=== PATIENT | female | born 1985 | race Hispanic/Latino ===

== ENCOUNTER 2018-04-23 09:47 | Outpatient (CLI) | payer BC | END 2018-04-23 09:48 | disposition home or self-care (01) | LOC: C.PAT 09:47 | DX: K82.4 Cholesterolosis of gallbladder (principal) ==

== ENCOUNTER → 2018-04-28 | Day surgery (SDC) | payer BC ==
[2018-04-23 10:55] VITALS: BMI 42.7
[~2018-04-28] MED LIST: Bupivacaine 0.25% 20 ML INJ IJ ONE; Bupivacaine Liposomal Inj 20 ml INFIL ONE; HYDROmorphone 0.5 mg/0.5 ml ISec IVP STA; Lactated Ringer's 1,000 ML IV ONE; Lidocaine/Epinephrine 1% 1:100000 10 ML IJ ONE; Midazolam 2 MG/2 ML VIAL ONE; Propofol 10 mg/ml Inj (20 ML) ONE; Sodium Chloride 0.9% 40 ML IV ONE; Vancomycin 1 gm/D5W 200 ml 1 GM/200 ML BAG IVPB ONE
[2018-04-28] MEDS: HYDROmorphone 0.5 mg/0.5 ml ISec IVP PRN ×4 (12:14→12:50)
--- NOTE | 2018-04-28 12:25 | PCM.SURG1 ---
Surgeon's Initial Post Op Note - Surgeon's Notes Surgeon: MD Melissa Seat Nailer: Kanchan Harman Pre-Operative Diagnosis: Cholecystitis Operative Findings: inflammed gallbladder Post-Operative Diagnosis: Cholecystitis Operation Performed: Robotic assisted laparoscopic cholecystectomy Specimen/Specimens Removed: gallbladder Estimated Blood Loss: EBL {In ML}: 5 Date of Surgery/Procedure: 04/28/18 Time of Surgery/Procedure: 11:00
[2018-04-28 15:13] VITALS: BP 127/81; PULSE 80; RESP 18; TEMP 97; O2SAT 100
--- NOTE | 2018-04-29 01:06 | OP ---
PROCEDURE DATE: 04/28/2018 PREOPERATIVE DIAGNOSES: 1. Gallbladder polyp. 2. Chronic cholecystitis. POSTOPERATIVE DIAGNOSES: 1. Gallbladder polyp. 2. Chronic cholecystitis. PROCEDURE DONE: 1. Robotic cholecystectomy. 2. Laparoscopic bilateral TAP block placement. PROCEDURE DONE BY: Goyo Torres MD SUMMER COUNSELOR: ANDREA Dalton ANESTHESIA: General endotracheal tube anesthesia. ESTIMATED BLOOD LOSS: Around 10 mL. DRAINS: None. PATHOLOGY: Gallbladder was sent for the pathology. COMPLICATIONS: None. INTRAOPERATIVE FINDINGS: The patient had changes of chronic cholecystitis and cholelithiasis. DESCRIPTION OF PROCEDURE: On intraoperative steps, this is a 33-year-old female who was diagnosed with a gallbladder polyp and the patient also had a previous history of gallbladder stone with chronic cholecystitis, and the patient was consented for robotic cholecystectomy, possible open, brought to the OR, placed supine on operating table. After induction of the anesthesia, the abdomen was prepped and draped in usual sterile fashion. A supraumbilical transverse incision was made using open technique. Peritoneal cavity was entered. Pneumo was created. Another 3.8-mm port was placed in upper abdomen. Robot was brought in. Camera arm as well as arm 1 and arm 2 was docked and gallbladder was retracted cranially. Calot's triangle dissection was done. Cystic duct and cystic artery were identified and clipped at three places and cut in between two clips nearby gallbladder. The gallbladder was dissected free from the gallbladder fossa, taken in EndoCatch bag, taken out through the umbilical port site and sent off the table for the pathology. There was proper hemostasis in each and every part of the procedure. The top-down approach was done. Critical view of the safety was also done, and intraoperative Firefly was used before clipping the cystic duct and cystic artery and after proper hemostasis, the robot was undocked. All the instrument was taken out. The specimen was sent off the table for the pathology and laparoscopic bilateral TAP block was given; 30:30 mL of Marcaine was injected into the transverse abdominis muscle plane area and after proper TAP block, all the ports were taken out under vision. Pneumo was deflated. Umbilical port site was closed in two-layer, the fascia with 0 Vicryl interrupted sutures, skin with 4-0 Monocryl and dry sterile dressing was applied. The patient tolerated procedure well. Count of instrument was correct. There was no apparent complication. Goyo Torres MD
== END | disposition home or self-care (01) ==
LOC: C.SDS 07:49
PROVIDERS: ATTEND Surgery Surgical Critical Care
DX: K80.10 Calculus of gallbladder with chronic cholecystitis without obstruction (principal)
CPT/HCPCS: 47562; 88304; J0131; J1170; J2250; J2405; J2704; J2765; J3010; J3370; J7030; J7120

== ENCOUNTER 2018-05-01 10:45 | Emergency (ER) | payer BC ==
[2018-05-01 10:45] VITALS: BMI 42.7
--- NOTE | 2018-05-01 12:06 | C.PDOC ---
History Of Present Illness 33 year old female (s/p cholecystectomy 4 days ago) presents to the emergency department with complaints of asymmetric pupils which she noted this morning. Patient states that both of her pupils are dilated, right greater than left. Patient reports that she is currently taking Ultram, last taken at 10PM last night, and she complains of a headache which began when she started taking Ultram. Time Seen by Provider: 05/01/18 11:36 Chief Complaint (Nursing): Eye Problem History Per: Patient History/Exam Limitations: no limitations Onset/Duration Of Symptoms: Hrs Current Symptoms Are (Timing): Still Present Quality: Aching Associated Symptoms: Other (asymmetric pupils) Past Medical History Reviewed: Historical Data, Nursing Documentation, Vital Signs Vital Signs: Last Vital Signs Temp 98.6 F 05/01/18 11:01 Pulse 90 05/01/18 11:01 Resp 18 05/01/18 11:01 BP 127/98 H 05/01/18 11:01 Pulse Ox 97 05/01/18 11:01 - Medical History PMH: Asthma, Fractures (HX:FX.ARM-RIGHT AND LEFT-CASTED ONLY), Gastritis Denies: Chronic Kidney Disease Surgical History: Cholecystectomy (04/28/2018), Tonsillectomy (AND ADENOIDECTOMY) Family History: States: No Known Family Hx - Social History Hx Tobacco Use: No Hx Alcohol Use: Yes Hx Substance Use: No - Immunization History Hx Tetanus Toxoid Vaccination: No Hx Influenza Vaccination: No Hx Pneumococcal Vaccination: No Review Of Systems Except As Marked, All Systems Reviewed And Found Negative. Eyes: Positive for: Other (asymmetric pupils) Neurological: Positive for: Headache Physical Exam - Physical Exam Appears: Non-toxic, No Acute Distress Skin: Warm, Dry Head: Atraumatic, Normacephalic Eye(s): bilateral: PERRL, Other (mydriasis, asymmetric pupils, right greater than left) Oral Mucosa: Moist Neck: Normal, Supple Chest: Symmetrical, No Tenderness Cardiovascular: Rhythm Regular, No Murmur Respiratory: Normal Breath Sounds, No Rales, No Rhonchi, No Wheezing Extremity: Normal ROM Neurological/Psych: Oriented x3, Normal Speech, Normal Cognition ED Course And Treatment - Laboratory Results Result Diagrams: 05/01/18 14:29 05/01/18 14:29 O2 Sat by Pulse Oximetry: 97 (RA) Pulse Ox Interpretation: Normal - CT Scan/US CT head Other Rad Studies (CT/US): Read By Radiologist, Radiology Report Reviewed CT/US Interpretation: IMPRESSION: Unremarkable unenhanced head CT. Medical Decision Making Medical Decision Making: Plan: CT Head POC Urine Spoke to Dr. Gomez 13:30, recommended CTA of the head and neck. 14:10 patient was evaluated by Dr. Gomez in the ER. 14:[address] Young opthalmology, awaiting a call back. 15:25 discussed the patient with Dr. Young opthalmology, states that patient does not need an emergency opthalmology evaluation. Patient is clear to be discharged home and instructed to f/u with opthalmology on Thursday05-03-18. 15:40 Dr. Torres requested brain MRI, Dr. Gomez confirmed that the MRI needs to be ordered with and without IV contrast, aware that CTA of the brain was also done. 17:20 Dr. Torres came to the ED to evaluate the patient. He states not to discharge the patient until he gets a chance to speak to neurology (Dr. Gomez) and opthalmology (Dr. Young). 18:00 Dr. Torres called back, states that patient is clear for discharge home. Disposition Discussed With : Jj Gomez (ok to d/c home) Doctor Will See Patient In The: Office - Disposition Referrals: Bayron Young [Staff Provider] - Jj Gomez MD [Staff Provider] - Disposition: HOME/ ROUTINE Disposition Time: 18:02 Condition: STABLE Instructions: [employer] Forms: [facility] (Yakut) - POA Present On Arrival: None - Clinical Impression Clinical Impression: Mydriasis - Scribe Statement The provider has reviewed the documentation as recorded by the Scribe (Julius Shena) Provider Attestation: All medical record entries made by the Scribe were at my direction and person ally dictated by me. I have reviewed the chart and agree that the record accurately reflects my personal performance of the history, physical exam, medical decision making, and the department course for this patient. I have also personally directed, reviewed, and agree with the discharge instructions and disposition.
--- NOTE | 2018-05-01 12:59 | CT ---
Date of service: 05/01/2018 PROCEDURE: CT HEAD WITHOUT CONTRAST. HISTORY: headache COMPARISON: None available. TECHNIQUE: Axial computed tomography images were obtained through the head/brain without intravenous contrast. Radiation dose: Total exam DLP = 1040.46 mGy-cm. This CT exam was performed using one or more of the following dose reduction techniques: Automated exposure control, adjustment of the mA and/or kV according to patient size, and/or use of iterative reconstruction technique. FINDINGS: HEMORRHAGE: No intracranial hemorrhage. BRAIN: Normal doherty-white matter differentiation and density are appreciated throughout the cerebrum and cerebellum with the brainstem appearing unremarkable as well. There is no mass effect. There is no suspicious extra-axial fluid collection and the midline brain anatomy appears diffusely unremarkable. VENTRICLES: Unremarkable. No hydrocephalus. CALVARIUM: Unremarkable. PARANASAL SINUSES: Unremarkable as visualized. No significant inflammatory changes. MASTOID AIR CELLS: Unremarkable as visualized. No inflammatory changes. OTHER FINDINGS: None. IMPRESSION: Unremarkable unenhanced head CT.
[2018-05-01 14:35] LABS: BASO % 0.3 % (0.0-2.0); EOS % 0.7 % (0.0-4.0); HEMOGLOBIN 14.2 g/dL (11.0-16.0); LYMPH # 1.7 K/uL (1.0-4.3); LYMPH % 24.1 % (20.0-40.0); MEAN CELL VOLUME 89.8 fL (81.0-99.0); MEAN CORPUSCULAR HEMOGLOBIN 29.9 pg (27.0-31.0); MEAN CORPUSCULAR HGB CONC 33.3 g/dL (33.0-37.0); MEAN PLATELET VOLUME 7.9 fL (7.2-11.7); MONO # 0.4 K/uL (0.0-0.8); MONO % 5.6 % (0.0-10.0); NEUT # 4.8 K/uL (1.8-7.0); NEUT % 69.3 % (50.0-75.0); RBC 4.75 Mil/uL (3.80-5.20); RED CELL DISTRIBUTION WIDTH 13.2 % (11.5-14.5)
[2018-05-01 14:49] LABS: ALB/GLOB RATIO 1.7 (1.0-2.1); ALBUMIN 4.4 g/dL (3.5-5.0); ALT/SGPT 26 U/L (9-52); AST/SGOT 25 U/L (14-36); BLOOD UREA NITROGEN 12 mg/dL (7-17); CALCIUM 9.4 mg/dl (8.6-10.4); GFR NON-AFRICAN AMERICAN > 60
[2018-05-01] MEDS ORDERED: Iodixanol 320 mg/ml 150 ml Bottle IV ONE (15:20)
[2018-05-01] MEDS ORDERED: Gadodiamide 287 mg/ml 20 ml IV ONE (16:20)
--- NOTE | 2018-05-01 16:24 | CT ---
Date of service: 05/01/2018 PROCEDURE: CT Angiography of the Head and Neck. HISTORY: Requested By Dr Gomez/ r/o CVA COMPARISON: None available. TECHNIQUE: CT angiography of the head and neck was performed following intravenous contrast administration. Coronal and sagittal maximum intensity projection reformatted images were generated. Contrast Dose: Visipaque 320, 100 cc Radiation dose: Total exam DLP = 537.47 mGy-cm. This CT exam was performed using one or more of the following dose reduction techniques: Automated exposure control, adjustment of the mA and/or kV according to patient size, and/or use of iterative reconstruction technique. FINDINGS: INTERNAL CEREBRAL ARTERIES: Unremarkable. The skull base, petrous, cavernous and supraclinoid segments are bilaterally widely patent. ANTERIOR CEREBRAL ARTERIES: Unremarkable. A1 and A2 segments are widely patent. Smaller distal branches unremarkable, as visualized. MIDDLE CEREBRAL ARTERIES: Unremarkable. M1 and M2 segments are widely patent. Perisylvian branches grossly symmetric. POSTERIOR CIRCULATION: Basilar Artery: Unremarkable. Distal Vertebral Arteries: Unremarkable. Posterior Cerebral Arteries: Unremarkable. Posterior Inferior Cerebellar Arteries: Unremarkable. NECK CTA: Common Carotid arteries: The bilateral common carotid appear widely patent from their origins to their bifurcations with no significant stenosis appreciated. No evidence to suggest common carotid artery dissection. Internal Carotid arteries: No significant stenosis is appreciated throughout the cervical internal carotid artery segments bilaterally and there is no evidence of dissection either. External Carotid arteries: Appear unremarkable bilaterally. Vertebral arteries: The bilateral vertebral arteries appear normal in caliber from their origins to their distal cervical segments. No significant stenosis or definite pattern of dissection. ANEURYSM/ VASCULAR MALFORMATIONS: None. OTHER FINDINGS: Nonspecific small sub cm lucencies are seen at the bilateral lobes of the thyroid gland too small to characterize. Ultrasonography may be helpful. IMPRESSION: Unremarkable CT Angiography of the Brain and Neck.
--- NOTE | 2018-05-01 17:27 | MRI ---
Date of service: 05/01/2018 PROCEDURE: MRI BRAIN WITH AND WITHOUT CONTRAST HISTORY: Neurology request/ r/o aneurism COMPARISON: CT of the Head without contrast 05/01/2018. TECHNIQUE: Multiplanar, multisequence MR images of the brain were obtained with and without intravenous contrast enhancement. FINDINGS: HEMORRHAGE: None DWI: No evidence of an acute or early subacute infarction. BRAIN PARENCHYMA: Intrinsic signal throughout the doherty and white matter structures above below the tentorium appears within normal limits including the brainstem. There is no mass effect, parenchymal edema or loss of the corticomedullary differentiation. Midline brain anatomy appears within normal limits including the corpus callosum, brainstem and craniocervical junction. There is no suspicious extra-axial fluid collection identified. ENHANCEMENT: No abnormal intracranial enhancement. VENTRICLES: Unremarkable. No hydrocephalus. CRANIUM: Unremarkable. ORBITS: Grossly unremarkable. PARANASAL SINUSES/MASTOIDS: Clear VASCULAR SYSTEM: Skull base flow voids intact. OTHER FINDINGS: None . IMPRESSION: Unremarkable pre and post contrast enhanced MRI of the brain.
[2018-05-01 18:15] VITALS: BP 114/77; PULSE 72; RESP 18; TEMP 98.3; O2SAT 99
--- NOTE | 2018-05-01 21:06 | CP.PCM.CON ---
<Saundra Parra - Last Filed: 05/01/18 21:10> History of Present Illness - History of Present Illness History of Present Illness: GENERAL SURGERY CONSULT NOTE FOR DR. HARTLEY 33yo F with PMHx of asthma, gastritis, cholecystitis s/p robotic cholecystectomy on 04/28/18 presented to the ED with asymmetric pupils. She noticed it this AM when she woke up. Pt reports that she can see but her vision is blurry. Pt reports right pupil bigger than left. Pt denies abdominal pain, ROBLERO, nausea, vomiting, or any other sx. Pt taking tramadol for post op pain. Review of Systems - Review of Systems All systems: reviewed and no additional remarkable complaints except (as per HPI) Past Patient History - Infectious Disease Hx of Infectious Diseases: None - Past Medical History & Family History Past Medical History?: Yes - Past Social History Smoking Status: Never Smoked - CARDIAC Hx Cardiac Disorders: No - PULMONARY Hx Asthma: Yes - NEUROLOGICAL Hx Neurological Disorder: No - HEENT Hx HEENT Problems: Yes Other/Comment: HX: TONSILLECTOMY AND ADENOIDECTOMY. 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 - RENAL Hx Chronic Kidney Disease: No - ENDOCRINE/METABOLIC Hx Endocrine Disorders: No - HEMATOLOGICAL/ONCOLOGICAL Hx Blood Disorders: No - INTEGUMENTARY Hx Dermatological Problems: No - MUSCULOSKELETAL/RHEUMATOLOGICAL Hx Fractures: Yes (HX:FX.ARM-RIGHT AND LEFT-CASTED ONLY) - GASTROINTESTINAL Hx Gastritis: Yes - GENITOURINARY/GYNECOLOGICAL Hx Genitourinary Disorders: No - PSYCHIATRIC Hx Substance Use: No - SURGICAL HISTORY Hx Cholecystectomy: Yes (04/28/2018) Hx Tonsillectomy: Yes (AND ADENOIDECTOMY) - ANESTHESIA Hx Anesthesia: Yes Hx Anesthesia Reactions: No Hx Malignant Hyperthermia: No Meds Allergies/Adverse Reactions: Allergies Allergy/AdvReac Type Severity Reaction Status Date / Time hydrocodone Allergy Intermediate VOMITING Verified 05/01/18 11:06 Penicillins Allergy Intermediate RASH Verified 05/01/18 11:06 Physical Exam - Constitutional Appears: Well, Non-toxic, No Acute Distress - Eye Exam Eye Exam: EOMI Pupil Exam: Mydriatic (right pupil more dilated than left) - Respiratory Exam Respiratory Exam: NORMAL BREATHING PATTERN. absent: Respiratory Distress - Cardiovascular Exam Cardiovascular Exam: +S1, +S2 - GI/Abdominal Exam GI & Abdominal Exam: Soft. absent: Distended, Guarding, Rebound, Rigid, Tend erness - Neurological Exam Neurological exam: Alert, CN II-XII Intact, Oriented x3 - Psychiatric Exam Psychiatric exam: Normal Affect, Normal Mood - Skin Skin Exam: Dry, Normal Color, Warm Results - Vital Signs Recent Vital Signs: Last Vital Signs Temp 98.3 F 05/01/18 18:15 Pulse 72 05/01/18 18:15 Resp 18 05/01/18 18:15 BP 114/77 05/01/18 18:15 Pulse Ox 99 05/01/18 18:15 - Labs Result Diagrams: 05/01/18 14:29 05/01/18 14:29 Labs: Laboratory Results - last 24 hr 05/01/18 05/01/18 14:29 14:29 WBC 7.0 RBC 4.75 Hgb 14.2 Hct 42.6 MCV 89.8 MCH 29.9 MCHC 33.3 RDW 13.2 Plt Count 288 MPV 7.9 Neut % (Auto) 69.3 Lymph % (Auto) 24.1 [place] % (Auto) 5.6 Eos % (Auto) 0.7 Baso % (Auto) 0.3 Neut # (Auto) 4.8 Lymph # (Auto) 1.7 [place] # (Auto) 0.4 Eos # (Auto) 0.0 Baso # (Auto) 0.0 Sodium 136 Potassium 4.0 Chloride 102 Carbon Dioxide 26 Anion Gap 13 BUN 12 Creatinine 0.6 L Est GFR ( Amer) > 60 Est GFR (Non-Af Amer) > 60 Random Glucose 95 Calcium 9.4 Total Bilirubin 0.5 AST 25 ALT 26 Alkaline Phosphatase 83 Total Protein 7.1 Albumin 4.4 Globulin 2.7 Albumin/Globulin Ratio 1.7 Assessment & Plan - Assessment and Plan (Free Text) Assessment: 33yo F with PMHx of asthma, gastritis, cholecystitis s/p robotic cholecystectomy on 04/28/18 presented to the ED with asymmetric pupils. - Head CT: unremarkable - CTA Head & Neck: unremarkable - Brain MRI: unremarkable - Dr. Hartley discussed case with db2 systems programmer and pt is to be discharged home to follow up with Dr. Young in his office on Thursday. Saundra Parra PGY-4 <Goyo Hartley - Last Filed: 05/02/18 20:19> Results - Vital Signs Recent Vital Signs: Last Vital Signs Temp 98.3 F 05/01/18 18:15 Pulse 72 05/01/18 18:15 Resp 18 05/01/18 18:15 BP 114/77 05/01/18 18:15 Pulse Ox 99 05/01/18 18:15 - Labs Result Diagrams: 05/01/18 14:29 05/01/18 14:29 Attending/Attestation - Attestation I have personally seen and examined this patient.: Yes I have fully participated in the care of the patient.: Yes I have reviewed all pertinent clinical information: Yes Notes (Text): Pt was seen and examined at bedside Agree with above note and assessment Pt with dilated pupils and blurry vision Abdomen : Soft, ,NT, ND No peritoneal signs CT scan of brain, CTA and MRI of brain is negative for abnormality Ass: Benign dilated pupils Plan: F/u with Dr. Young Ophthalmology Po tylenol for incisional pain f/u as out pt Plan d.w pt in detail Risk and benefit explained in detail.
== END 2018-05-01 18:18 | disposition home or self-care (01) ==
LOC: C.ER 10:45
DX: H57.04 Mydriasis (principal)
CPT/HCPCS: 70450; 70496; 70498; 70553; 80053; 81025; 85025; 99285; Q9967